=== PATIENT | female | born 1945 | race Caucasian/White ===

== ENCOUNTER → 2018-04-16 | Outpatient (CLI) | payer OTHER ==
[2015-03-22 07:53] VITALS: BP 162/65
[~2018-04-16] MED LIST: ASPI81TA11 PO; BYSTOLIC20 MG PO; ESOM40CA PO; FURO-69 PO; GLIM4TAB PO; INSU100I13 SQ; LEXAPRO10 MG PO; OLME1TAB23 PO; POTA10TA12 PO; WARF-78 PO; ZOLPIDEM 5 MG TABLET. PO ONE
--- NOTE | 2018-04-17 10:13 | SLEEP ---
DATE OF STUDY: 04/16/2018 ATTENDING PHYSICIAN: Dr. Trevon Rankin. The patient is a 72-year-old who weighs 272 pounds with a BMI of 39. The patient's Kaumakani score was 10. The patient underwent a split night study performed at [facility]. During the night study, the patient spent 469 minutes in bed and slept for 263 minutes with a sleep efficiency of 56%. Sleep latency was prolonged at 76 minutes with an absent REM sleep. Overall, sleep architecture showed increased stage 1 sleep, normal stage 2 sleep, normal slow wave, and absent REM sleep. The patient's EKG monitoring revealed a mean heart rate of 76 beats per minute. No sustained arrhythmias were observed. PLMS were seen at index of 51 per hour and 8 per hour caused EEG arousals. Nocturnal oximetry study revealed a mean oxygen saturation of 93% with the lowest of 82%. 70% of time oxygen saturation remained between 80% and 89%. During the initial diagnostic portion of the study, the patient slept for 158 minutes. During that time, there were 7 obstructive apneas, 2 mixed apneas, no central apneas and 77 hypopneas. The patient's apnea-hypopnea index was 33 per hour. Supine or REM sleep was not seen during the diagnostic portion of the study. The patient met the criteria for CPAP initiation. It was started at 5 cm water and titrated up to 12 cm water. At the final pressure, the patient slept for a 2.5 minutes. The patient's AHI was 24 per hour. Prior to that, at lower pressures of 9 cm water, the patient's AHI was 13 per hour. The patient had supine sleep, but no REM sleep. The patient's oxygen saturation remained above 88% at the final pressure. Optimum CPAP pressure was not achieved on this split night study. IMPRESSION: 1. Severe sleep apnea-hypopnea syndrome with an apnea-hypopnea index of 33 per hour. 2. Nocturnal hypoxia secondary to obstructive sleep apnea, but resolved with CPAP. 3. Severe periodic limb movements during sleep. RECOMMENDATIONS: 1. Optimum CPAP pressure was not achieved on the split night study. I would recommend the patient should return to the Sleep Lab for a full night CPAP/BiPAP titration study starting at a CPAP pressure of 12 cm of water. 2. Once optimum CPAP pressure is achieved, then follow up in 4-6 weeks to assess compliance with positive pressure therapy and to document clinical improvement. 3. Weight loss is strongly advised. 4. Avoid COMPUTATIONAL LINGUIST depressants. 5. Caution regarding driving until symptoms of sleep apnea resolve with above recommendation. 6. The patient should also be further evaluated for symptoms of restless legs during the day. NESTOR GARCIA MD DR: NILSA/john JOB#: [id number] / [id number] TREVON Dobson MD
== END | disposition home or self-care (01) ==
LOC: SLPLAB 18:34
PROVIDERS: ATTEND Family Medicine
DX: G47.33 Obstructive sleep apnea (adult) (pediatric) (principal); I10 Essential (primary) hypertension; E78.00 Pure hypercholesterolemia, unspecified; Z90.49 Acquired absence of other specified parts of digestive tract; Z85.828 Personal history of other malignant neoplasm of skin
CPT/HCPCS: 95810

== ENCOUNTER → 2018-05-05 | Outpatient (CLI) | payer OTHER ==
[2015-03-22 07:53] VITALS: BP 162/65
[~2018-05-05] MED LIST changes: +OXYMETAZOLINE 0.05% NASAL SPRAY 30ML BOTTLE. NS ONE
--- NOTE | 2018-05-06 13:43 | SLEEP ---
DATE OF STUDY: 05/05/2018 ATTENDING PHYSICIAN: Dr. Rankin. The patient is 72-year-old who weighs 272 pounds with a BMI of 41. The patient's May score was 10. The patient had a previous sleep study and was found to have severe COLBY at an AHI of 33 per hour. Optimum CPAP pressure was not achieved, as a result she was referred back for CPAP titration study. During the night study, the patient spent 418 minutes in bed and slept for 330 minutes with a sleep efficiency of 79%. Sleep latency was 22 minutes with a REM latency of 302 minutes. Overall, sleep architecture showed increased stage 1 sleep, normal stage 2 sleep, increased slow wave and reduced REM sleep. EKG monitoring revealed normal sinus rhythm. No sustained arrhythmias were observed. Average heart rate of 60 beats per minute. PLMS were seen at index of 90 per hour and 13 per hour caused EEG arousals. The patient was started on CPAP at 12 cm water and titrated up to 14 cm water. At the final pressure, the patient slept for 74 minutes. The patient had supine as well as REM sleep. The patient's AHI was reduced to 1 per hour and oxygen saturation remained above 90%. The patient used small size nasal pillows. IMPRESSION: 1. Severe sleep apnea diagnosed by previous sleep study. 2. Severe PLMS. RECOMMENDATIONS: 1. CPAP at 14 cm water should be used on a nightly basis. 2. Follow up in 4-6 weeks to assess compliance with CPAP and to document clinical improvement. 3. Weight loss is strongly advised. 4. Avoid PANEL COVERER depressants. 5. Caution regarding driving until symptoms of sleep apnea resolve with the use of CPAP. 6. The patient should also be further evaluated for symptoms of restless legs during the day and if present, it can be treated with dopaminergic agonist agents. NESTOR GARCIA MD DR: NILSA/john JOB#: [id number] / [id number] TREVON Dobson MD
== END | disposition home or self-care (01) ==
LOC: RT 18:43
PROVIDERS: ATTEND Internal Medicine Critical Care Medicine
DX: G47.33 Obstructive sleep apnea (adult) (pediatric) (principal); G47.61 Periodic limb movement disorder
CPT/HCPCS: 95811

== ENCOUNTER → 2021-03-27 | Outpatient (CLI) | payer MEDICARE ==
[2015-03-22 07:53] VITALS: BP 162/65
[~2021-03-27] MED LIST changes: -OXYMETAZOLINE 0.05% NASAL SPRAY 30ML BOTTLE. NS ONE; -WARF-78 PO; +WARF5TAB2 PO; -ZOLPIDEM 5 MG TABLET. PO ONE
--- NOTE | 2021-03-27 13:22 | KCIC ---
MR LUMBAR SPINE [id number] History: Reason: RIGHT LUMBAR RADICULOPATHY / Spl. Instructions: / History: LBP into right hip and l eg for 2 mths. NKI. Technique: Multiplanar, multi sequential MR imaging was performed of the lumbar spine. Comparison: None Findings: Mild retrolisthesis L1 on L2. Grade 1 anterolisthesis L4 on L5 and L5 on S1. Slight retrolisthesis L3 on L4. Conus terminates at the normal location. No evidence of nerve root clumping. Sacral Tarlov cysts. L1-L2: Retrolisthesis. Broad-based disc bulge. Mild facet arthropathy. No canal narrowing. Mild suba rticular recess narrowing. Mild bilateral neuroforaminal narrowing. L2-L3: Small disc bulge. Mild facet arthropathy. No canal narrowing. Mild bilateral neuroforaminal n arrowing. L3-L4: Anterolisthesis. Broad-based disc bulge. Advanced facet arthropathy with bilateral synovial c ysts on the right measures 0.8 x 0.5 cm and on the left measures 0.6 x 0.2 cm (series 5 image 7). Sev ere canal and subarticular recess narrowing. Nerve root compression. Mild bilateral neuroforaminal na rrowing. L4-L5: Anterolisthesis. Broad-based disc bulge. Severe canal narrowing and some reticular recess werner rowing. Advanced facet arthropathy. Mild bilateral neuroforaminal narrowing. L5-S1: Anterolisthesis. Small disc bulge. Advanced facet arthropathy. No canal narrowing. Mild subar ticular recess narrowing of the left. No neuroforaminal narrowing. Impression: 1. Multilevel lumbar spondylosis most prominent L3-L4 and L4-5. 2. Severe L3-L4 canal narrowing due to disc disease and facet arthropathy as well as synovial cysts. 3. Anterolisthesis L4 on L5 due to advanced facet arthropathy contributing to severe canal narrowing . Electronically signed by: Ken Cottrell DO (03/27/2021 1:20 PM) [facility]
== END ==
LOC: KCIC MRI 10:00
PROVIDERS: ATTEND Physical Medicine & Rehabilitation
DX: M47.817 Spondylosis without myelopathy or radiculopathy, lumbosacral region (principal); M48.07 Spinal stenosis, lumbosacral region; M71.38 Other bursal cyst, other site; M43.17 Spondylolisthesis, lumbosacral region
CPT/HCPCS: 72148